=== PATIENT | female | born 1965 ===

== ENCOUNTER → 2020-05-15 | Outpatient (CLI) | payer OTHER ==
[~2020-05-15] VITALS: Ht 172.7 cm; Wt 63.5 kg
[~2020-05-15] MED LIST: AMLODIPINE BESY10 MG PO; COZAAR 25 MG TA25 M2 PO; HUMIRA40 MG/0.8 SUBQ; INDOMETHACIN 5050 M1 PO; VENLAFAXINE HC225 MG PO; VITAMIN D350 MC3 PO
--- NOTE | ~2020-05-15 | HPC ---
[facility] [address] [address] PAIN MANAGEMENT CONSULTATION Name: NELIDA LUGO Room #: REG NOAH RuthTyrel.#: [id number] Admission: 05/15/20 Attend Phys: Jordy Travis MD Discharge: Date of : 69 Report #: [id number] CC: Kinza Travis DATE OF SERVICE: 05/15/2020 CHIEF COMPLAINT: Pain in the right hip. The patient is a stewart 54-year-old who I am seeing today at the request of her primary care physician, Dr. Kinza Witt. She has congenital scoliosis and pain related to a recent diagnosis of ankylosing spondylitis. Her primary pain generator is in her right hip. It is localized and tender overlying the greater trochanter. She does not appear to have any hip joint arthropathy on plain film x-rays or by exam. The pain in her hip has been intermittent, off and on, over several years. She has responded nicely to hip injections. After some discussion and review of records, it appears that these have been trochanteric bursa injections or in that region. She describes the pain as a continuous, aching sensation, 6/10 on the intensity scale, made worse by activities. She uses some heat and cold with benefit. She has also used indomethacin 50 mg b.i.d. for some time under the direction of money market dealer, Dr. Yip. She is also on Humira. MEDICINES: Venlafaxine 225 daily, losartan 100 mg daily, amlodipine 10 mg daily, indomethacin b.i.d., Humira 40 mg biweekly, vitamin D. ALLERGIES: None. PAST MEDICAL HISTORY: Significant for hypertension, thoracolumbar scoliosis with rotational changes, recent diagnosis of ankylosing spondylitis and she also has a tentative diagnosis of psoriatic arthritis. SOCIAL HISTORY: She is , she has a 10-year-old; works as a technical program manager. She does not smoke. Drinks alcohol occasionally in social settings, no more than 1-2 beverages per week. Impacted pain score of 40/10. She describes her greatest interference as an 8/10 with sleep and enjoyment of life 7/10. A score of 40 suggest pain impacts her functional and happiness in a relatively high manner. Opioid risk tool, low risk is considered 0-3; her score is 1 for history of depression. There is no family or personal history of substance abuse. PHYSICAL EXAMINATION: GENERAL: She is a pleasant, slender female, alert and oriented. She does not appear to be overtly depressed today and denies active depression. She can easily move from sitting to standing position and ambulates normally. Her gait is slightly altered due to her scoliosis and a pelvic tilt. VITAL SIGNS: Blood pressure is 117/79, heart rate 90, respirations 18, O2 sat 99. 5 feet 8, 140, BMI of 21.3. CHEST: Clear. CARDIAC: Rhythm is regular. MUSCULOSKELETAL: Reveals thoracic and lumbar compensatory curvatures with rotational scoliosis. The right scapula is more prominent and elevated. She has mild tenderness along the spine, but this is of no significant consequence. She has good flexion and extension of the lumbar spine. Examination of the lower extremities reveals minimal discomfort in the hip with internal and external rotation and straight leg raising. Straight leg raising is negative for any radicular type symptoms. She has minimal pain on the left. On the right side, just posterior to the greater trochanter, there is an area of localized tenderness that she says is her spot. This is where the pain develops and worsens with standing and weightbearing. IMPRESSION: Trochanteric bursitis. I think she would benefit from a trochanteric bursa injection, which can be performed once we receive preauthorization from insurance and we will go forward. Discussed the injection. I would use triamcinolone 0.25% bupivacaine. Risks and benefits were reviewed. She would like to receive the injection as soon as we are able to schedule. I have her on the schedule for next Tuesday. By: [id number] Jordy Travis MD /nt
[2020-05-15 09:51] VITALS: BP 117/79
--- NOTE | 2020-05-15 10:29 | NUR ---
Pain Clinic Assessment: 1. History of Osteoarthritis: History of Rheumatoid Arthritis: HIPS,KNEES,HANDS 2. Height: 5 ft. 8 in. 172.7 cm. Weight: 140.0 lb. oz. 63.504 kg. Patient's BMI: 21.3 3. Vital Signs: BP: 117/79 Pulse: 90 Resp: 18 Temp: 02 Sat: 99 ECG Mon: 4. Pain Intensity: 6 5. Fall Risk: Dizziness: N Needs help standing or walking: N Fallen in the last 3 months: Y Fall risk comments: 6. Patient on Blood Thinner: None 7. History of Hypertension: N 8. Opioid Therapy greater than 6 weeks: N Opiate Contract Signed: 9. Risk Assessment Tool Provided: 1-LOW RISK 10. Functional Assessment Tool: 11. Recreational Drug Use: Unknown Drug Type: Tobacco Use: Unknown if Ever Smoked Tobacco Type: Amount or Packs/day: How Many Years: Alcohol Use: Yes Frequency: Weekly Quant: 1-2
== END ==
LOC: PAIN 01-10 13:10
PROVIDERS: ATTEND Anesthesiology Pain Medicine
DX: M70.61 Trochanteric bursitis, right hip (principal)

== ENCOUNTER → 2020-05-22 | Outpatient (CLI) | payer OTHER ==
[~2020-05-22] VITALS: Ht 172.7 cm; Wt 64.3 kg
--- NOTE | ~2020-05-22 | HPC ---
[facility] [place] [address] [place] [address] PAIN MANAGEMENT CONSULTATION Name: NELIDA LUGO Room #: REG NOAH Pearson#: [id number] Admission: 05/22/20 Attend Phys: Jordy Travis MD Discharge: Date of : 69 Report #: [id number] CC: Kinza Travis DATE OF SERVICE: 05/22/2020 Followup visit for trochanteric bursitis, now bilateral. I am seeing the patient back today for injections, discussed in her consultation on 05/15/2020. At that time, most of her pain was unilateral on the right, but since that time, she has developed more pain that is symmetrical and consistent with trochanteric bursitis also on the left. She has had bilateral injections in the past. I have agreed to provide her with injections on both sides today as we have often seen patient experiencing these symptoms bilaterally. We confirmed that this is appropriate and will be covered through her insurance. There have been no other changes in her health history. IMPRESSION: Bilateral trochanteric bursitis with bilateral tenderness posterior to the trochanter. PROCEDURE: Bilateral trochanteric bursa injection. After informed consent, she was placed in the left lateral decubitus position. Skin was prepped over the right greater trochanter. I used a 25-gauge 2-inch needle and gently injected a total of 4 mL of 0.25% bupivacaine mixed with 40 mg of triamcinolone posterior to the trochanter and lateral. She tolerated the procedure well. She was allowed to recover and then rolled to her opposite side and then injected the right greater trochanteric bursa using the same technique. Both injections were performed without discomfort and she was observed for a short time and discharged without complication. A followup visit is planned in the pain clinic on an as needed basis. By: [id number] Jordy Travis MD /nt
[2020-05-22 14:31] VITALS: BP 115/68
--- NOTE | 2020-05-22 14:38 | NUR ---
Pain Clinic Assessment: 1. History of Osteoarthritis: History of Rheumatoid Arthritis: HIPS,KNEES,HANDS 2. Height: 5 ft. 8 in. 172.7 cm. Weight: 141.8 lb. oz. 64.320 kg. Patient's BMI: 21.6 3. Vital Signs: BP: 115/68 Pulse: 88 Resp: 14 Temp: 02 Sat: 100 ECG Mon: 4. Pain Intensity: 6 5. Fall Risk: Dizziness: N Needs help standing or walking: N Fallen in the last 3 months: N Fall risk comments: 6. Patient on Blood Thinner: None 7. History of Hypertension: N 8. Opioid Therapy greater than 6 weeks: N Opiate Contract Signed: 9. Risk Assessment Tool Provided: 1-LOW RISK 10. Functional Assessment Tool: 11. Recreational Drug Use: Unknown Drug Type: Tobacco Use: Unknown if Ever Smoked Tobacco Type: Amount or Packs/day: How Many Years: Alcohol Use: Yes Frequency: Quant:
== END | disposition home or self-care (01) ==
LOC: PAIN 06:45
PROVIDERS: ATTEND Anesthesiology Pain Medicine
DX: M70.62 Trochanteric bursitis, left hip (principal); M70.61 Trochanteric bursitis, right hip; M06.9 Rheumatoid arthritis, unspecified; Z98.890 Other specified postprocedural states; Z79.899 Other long term (current) drug therapy